=== PATIENT | female | born 1985 ===

== ENCOUNTER 2018-08-23 20:57 | Emergency (ER) | payer BC ==
[2018-08-23 21:42] VITALS: BMI 30.9
[2018-08-23 22:10] LABS: URINE BILIRUBIN NEGATIVE (NEGATIVE); URINE BLOOD NEGATIVE (NEGATIVE); URINE GLUCOSE (UA) NEGATIVE (NEGATIVE); URINE LEUKOCYTE ESTERASE NEGATIVE Leu/uL (NEGATIVE); URINE PROTEIN NEGATIVE mg/dL (<30 mg/dL); URINE UROBILINOGEN 0.2 E.U./dL (<1 E.U./dL)
[2018-08-23 22:12] LABS: URINE APPEARANCE CLEAR (CLEAR)
--- NOTE | 2018-08-23 22:45 | ED PDOC ---
Arrival/HPI - General Chief Complaint: Female Genitourinary Time Seen by Provider: 08/23/18 21:09 Historian: Patient - History of Present Illness Narrative History of Present Illness (Text): 08/23/18 22:42 32-year-old female with past medical history of fibroids presents the emergency room complaining of pelvic pain, vaginal spotting, fatigue and dyspareunia for the past two days. Patient states that five years ago she was hospitalized, found that she was severely anemic due to a large fibroid which had to be emergently removed surgically via myomectomy. Patient states that since that procedure was done she has had two normal pregnancies, and during both pregnancies she had multiple ultrasounds which showed no other fibroids. States that she had normal blood work with her PMD last year. Otherwise she reports no fever, chills, nausea, vomiting, or urinary symptoms. Past Medical History - Hematological/Oncological Hx Blood Transfusions: Yes Hx Blood Transfusion Reaction: No - Psychiatric Hx Substance Use: No - Surgical History Hx Section: Yes Other/Comment: Myomectomy Family/Social History Family/Social History: No Known Family HX Smoking Status: Never Smoked Hx Alcohol Use: No Hx Substance Use: No Allergies/Home Meds Allergies/Adverse Reactions: Allergies pecan nut Allergy (Verified 08/23/18 21:42) ANAPHYLAXIS walnut Allergy (Verified 08/23/18 21:42) ANAPHYLAXIS Home Medications: Home Meds Medication Instructions Recorded Confirmed No Known Home Med 08/23/18 08/23/18 Review of Systems - Review of Systems Constitutional: Fatigue. absent: Fevers Respiratory: absent: SOB, Cough Cardiovascular: absent: Chest Pain, Palpitations Gastrointestinal: Abdominal Pain. absent: Diarrhea, Nausea, Vomiting Genitourinary Female: Vaginal Bleeding. absent: Dysuria, Frequency, Hematuria, Vaginal Discharge Musculoskeletal: absent: Arthralgias, Back Pain, Neck Pain Skin: absent: Rash, Pruritis, Skin Lesions Neurological: absent: Headache, Dizziness Physical Exam Appearance: Positive for: Well-Appearing, Non-Toxic, Comfortable Pain Distress: None Mental Status: Positive for: Alert and Oriented X 3 - Systems Exam Head: Present: Atraumatic, Normocephalic Pupils: Present: PERRL Extroacular Muscles: Present: EOMI Conjunctiva: Present: Normal Mouth: Present: Moist Mucous Membranes Neck: Present: Normal Range of Motion Respiratory/Chest: Present: Clear to Auscultation, Good Air Exchange. No: Respiratory Distress, Accessory Muscle Use Cardiovascular: Present: Regular Rate and Rhythm, Normal S1, S2. No: Murmurs Abdomen: No: Tenderness, Distention, Peritoneal Signs Genitourinary/Pelvic Exam: Present: Normal External Genitalia, Adenexal Tenderness (+R adnexal tenderness), Cervical os Closed, Other (Female RN Danissa was present as baby formula mixer). No: Vaginal Discharge, Vaginal Bleeding, Vaginal Lesions, Adenexal Mass, Cervical Motion Tendernes, Odor Back: Present: Normal Inspection Upper Extremity: Present: Normal Inspection. No: Cyanosis, Edema Lower Extremity: Present: Normal Inspection. No: Edema Neurological: Present: GCS=15, CN II-XII Intact, Speech Normal Skin: Present: Warm, Dry, Normal Color. No: Rashes Psychiatric: Present: Alert, Oriented x 3, Normal Insight, Normal Concentration Medical Decision Making ED Course and Treatment: 08/23/18 22:46 Plan : - Uhcg - Urinalysis - Urine cx - GC cx - Labs - TV US Uhcg : (-). Urinalysis : (-). Labs reviewed : hgb is 8.9. Ultrasound of the pelvis. Transvaginal ultrasound. Electronically signed on Aug 24, 2018 1:32:31 AM EDT by: Bethany Georges M.D. Impression: Diffusely thickened endometrium. 08/24/18 02:04 On reevaluation, patient remains awake alert and oriented 3 in no acute distress. Results discussed with the patient. Notified that she is anemic and she will need to follow up with her pmd regarding this. Advised to follow up with primary care physician and buy boat operator in 1-2 days without fail. Return to the emergency room at any time for any new or worsening symptoms. Patient states she fully agrees with and understands discharge instructions. States that she agrees with the plan and disposition. Verbalized and repeated discharge instructions and plan. I have given the patient opportunity to ask any additional questions. - Lab Interpretations Lab Results: Urine Color yellow (YELLOW) 08/23/18 22:07 Urine Appearance Clear (CLEAR) 08/23/18 22:07 Urine pH 6.0 (4.7-8.0) 08/23/18 22:07 Ur Specific [place] 1.025 (1.005-1.035) 08/23/18 22:07 Urine Protein Negative mg/dL (<30 mg/dL) 08/23/18 22:07 Urine Glucose (UA) Negative mg/dL (NEGATIVE) 08/23/18 22:07 Urine Ketones Negative mg/dL (NEGATIVE) 08/23/18 22:07 Urine Blood Negative (NEGATIVE) 08/23/18 22:07 Urine Nitrate Negative (NEGATIVE) 08/23/18 22:07 Urine Bilirubin Negative (NEGATIVE) 08/23/18 22:07 Urine Urobilinogen 0.2 E.U./dL (<1 E.U./dL) 08/23/18 22:07 Ur Leukocyte Esterase Negative Brigid/uL (NEGATIVE) 08/23/18 22:07 - RAD Interpretation Radiology Orders: 08/23/18 22:40 TRANSVAGINAL [US] Stat - PA / SAXOPHONE TEACHER / Resident Statement MD/DO has reviewed & agrees with the documentation as recorded. Disposition/Present on Arrival - Present on Arrival Any Indicators Present on Arrival: No History of DVT/PE: No History of Uncontrolled Diabetes: No Urinary Catheter: No History of Decub. Ulcer: No History Surgical Site Infection Following: None - Disposition Have Diagnosis and Disposition been Completed?: Yes Diagnosis: Anemia, Pelvic pain Disposition: HOME/ ROUTINE Disposition Time: 02:00 Patient Plan: Discharge Patient Problems: Current Active Problems Problem Status Onset Anemia Acute Pelvic pain Acute Condition: STABLE Discharge Instructions (ExitCare): Anemia Caused by Low Iron, Acute Pelvic Pain (DC) Additional Instructions: Thank you for letting us take care of you today. You were treated for anemia, pelvic pain. The emergency medical care you received today was directed at your acute symptoms. Return to the Emergency Department if your symptoms worsen, do not improve, or if you have any other problems. Please contact your buy boat operator doctor in 2 days for re-evaluation and follow up. Bring any paperwork you were given at discharge with you along with any medications you are taking to your follow up visit. Our treatment cannot replace ongoing medical care by a primary care provider (PCP) outside of the emergency department. Thank you for allowing the [facility] team to be part of your care today. Your blood work shows that you are anemic with a hgb of 8.9. Your transvaginal US showed : diffusely thickened endometrium, normal ovaries, no fibroids. Referrals: PCP,NO [Primary Care Provider] - Follow up with primary Forms: [employer] (Serbian), WORK NOTE
[2018-08-23 23:31] LABS: BASO # 0.03 K/mm3 (0.0-2.0); BASO % 0.5 % (0.0-3.0); EOS # 0.1 (0.0-0.7); EOS % 1.8 % (1.5-5.0); HEMOGLOBIN 8.9 g/dL (12.0-16.0); LYMPH # 2.8 (1.2-3.4); LYMPH % 46.7 % (22.0-35.0); MEAN CELL VOLUME 70.6 fl (80.0-105.0); MEAN CORPUSCULAR HEMOGLOBIN 21.2 pg (25.0-35.0); MEAN CORPUSCULAR HGB CONC 30.1 g/dl (31.0-37.0); MEAN PLATELET VOLUME 9.9 fl (7.0-11.0); MONO # 0.2 (0.1-0.6); MONO % 3.5 % (1.0-6.0); RBC 4.19 10^6/uL (3.5-6.1); RED CELL DISTRIBUTION WIDTH 17.1 % (11.5-14.5); WHITE BLOOD COUNT 6.1 10^3/uL (4.5-11.0)
[2018-08-23 23:42] LABS: ALB/GLOB RATIO 1.3 (1.1-1.8); ALBUMIN 4.3 g/dL (3.0-4.8); ALT/SGPT 23 U/L (7-56); AST/SGOT 23 U/L (14-36); BLOOD UREA NITROGEN 14 mg/dL (7-21); CALCIUM 9.3 mg/dL (8.4-10.5); GFR NON-AFRICAN AMERICAN > 60
[2018-08-24 00:17] VITALS: O2SAT 98
[2018-08-24 02:18] VITALS: BP 122/69; PULSE 68; RESP 17; TEMP 98.2
--- NOTE | 2018-08-24 11:31 | US ---
Date of service: 08/23/2018 HISTORY: R pelvic pain COMPARISON: None available. TECHNIQUE: Grayscale, color Doppler and spectral evaluation the pelvis performed transvaginally FINDINGS: UTERUS: Measures 11.4 x 7.1 x 9.0 cm. Anteverted. Normal in size and appearance. No fibroid or other mass lesion seen. ENDOMETRIUM: Measures 17 mm in diameter. Intrauterine device in place. CERVIX: No cervical abnormality identified. RIGHT OVARY: Measures 3.7 x 3.0 x 3.7 cm. No solid mass. Normal flow. LEFT OVARY: Measures 3.7 x 3.2 x 3.3 cm. No solid mass. Normal flow. FREE FLUID: No significant free fluid noted. OTHER FINDINGS: None. IMPRESSION: Unremarkable pelvic ultrasound. Intrauterine device in place.
== END 2018-08-24 02:17 | disposition home or self-care (01) ==
LOC: ED 20:57
DX: R10.2 Pelvic and perineal pain (principal); D64.9 Anemia, unspecified